=== PATIENT | female | born 1995 | race Caucasian/White ===

== ENCOUNTER 2017-08-09 08:37 | Emergency (ER) | payer OTHER ==
--- NOTE | 2017-08-09 08:41 | UC ---
Lower Extremity/Ankle HPI - HPI Summary HPI Summary: 22 year old male presents with complains of right ankle pain post fall. - History of Current Complaint Stated Complaint: RIGHT ANKLE INJURY Time Seen by Provider: 08/09/17 08:41 Hx Obtained From: Patient Hx Last Menstrual Period: 1 yr Onset/Duration: Sudden Onset Severity Initially: Moderate Severity Currently: Moderate Pain Scale Used: 0-10 Numeric - 8 Aggravating Factor(s): Standing Alleviating Factor(s): Rest - Allergies/Home Medications Allergies/Adverse Reactions: Allergies Allergy/AdvReac Type Severity Reaction Status Date / Time No Known Allergies Allergy Verified 08/09/17 08:43 PMH/Surg Hx/FS Hx/Imm Hx Previously Healthy: Yes - Surgical History Surgical History: None - Family History Known Family History: Positive: Unknown - Social History Alcohol Use: Weekly Alcohol Amount: 10 Substance Use Type: Marijuana Substance Use Comment - Amount & Last Used: 07/17/17 Smoking Status (MU): Never Smoked Tobacco Have You Smoked in the Last Year: Yes - marijuana - Immunization History Hx Tetanus, Diphtheria Vaccination: Yes Vaccination Up to Date: Yes Review of Systems Constitutional: Negative Skin: Negative Eyes: Negative ENT: Negative Respiratory: Negative Cardiovascular: Negative Gastrointestinal: Negative Genitourinary: Negative Motor: Negative Neurovascular: Negative Musculoskeletal: Other: - right ankle pain Neurological: Negative Psychological: Negative All Other Systems Reviewed And Are Negative: Yes Physical Exam Triage Information Reviewed: Yes Vital Signs Reviewed: Yes Eye Exam: Normal ENT Exam: Normal Dental Exam: Normal Neck exam: Normal Neck: Positive: 1 Respiratory Exam: Normal Cardiovascular Exam: Normal Abdominal Exam: Normal Musculoskeletal: Positive: Other: - right ankle pain/sprain Neurological Exam: Normal Psychological Exam: Normal Skin Exam: Normal Lower Extremity Course/Dx - Differential Dx/Diagnosis Provider Diagnoses: right ely sprain Discharge - Discharge Plan Condition: Stable Disposition: HOME Prescriptions: Ibuprofen TAB* [Motrin TAB* 800 MG] 800 mg PO Q6H #30 tab Patient Education Materials: Ankle Sprain (ED) Referrals: Ben Levin MD [Medical Doctor] - Non Staff,Doctor [Primary Care Provider] -
[2017-08-09 08:47] VITALS: BP 96/61
--- NOTE | 2017-08-09 09:14 | RAD ---
Indication: Right ankle injury. 3 views of the right ankle demonstrates ankle mortise to be intact. There is no fracture. No other bone or joint abnormality is identified. IMPRESSION: No fracture of the right ankle is noted.
== END 2017-08-09 09:56 | disposition home or self-care (01) ==
LOC: UCCORT 08:37
DX: S93.401A Sprain of unspecified ligament of right ankle, initial encounter (principal); W19.XXXA Unspecified fall, initial encounter; Y93.9 Activity, unspecified; Y92.9 Unspecified place or not applicable; Y99.9 Unspecified external cause status; F12.90 Cannabis use, unspecified, uncomplicated
CPT/HCPCS: 99213; G0463

== ENCOUNTER 2017-10-23 17:15 | Emergency (ER) | payer OTHER ==
[2017-10-23 19:07] VITALS: BP 119/79
--- NOTE | 2017-10-23 19:09 | UC ---
UC General HPI - HPI Summary HPI Summary: pt is c/o fever, sore throat from cough, congestion, chills and being achy. this began pm. no sob, cp, n/v/d or dysuria. throat sore only with the cough. friend has the flu. - History of Current Complaint Stated Complaint: COUGH SORE THROAT Time Seen by Provider: 10/23/17 18:58 Hx Obtained From: Patient Hx Last Menstrual Period: 1 yr Onset/Duration: Gradual Onset Timing: Constant Onset Severity: Moderate Associated Signs & Symptoms: Positive: Cough, Fever - Allergy/Home Medications Allergies/Adverse Reactions: Allergies Allergy/AdvReac Type Severity Reaction Status Date / Time No Known Allergies Allergy Verified 10/23/17 18:58 Home Medications: Home Medications guaiFENesin [Mucinex] 600 mg PO BID PRN 10/23/17 [History Confirmed 10/23/17] PMH/Surg Hx/FS Hx/Imm Hx Previously Healthy: Yes - Surgical History Surgical History: None - Family History Known Family History: Positive: Unknown - Social History Alcohol Use: Weekly Alcohol Amount: 10 Substance Use Type: Marijuana Substance Use Comment - Amount & Last Used: 07/17/17 Smoking Status (MU): Never Smoked Tobacco Have You Smoked in the Last Year: Yes - marijuana - Immunization History Hx Tetanus, Diphtheria Vaccination: Yes Vaccination Up to Date: Yes Review of Systems Constitutional: Fever, Chills Skin: Negative Eyes: Negative ENT: Sore Throat, Sinus Congestion Respiratory: Cough Cardiovascular: Negative Gastrointestinal: Negative Genitourinary: Negative Musculoskeletal: Myalgia Psychological: Negative Is Patient Immunocompromised?: No All Other Systems Reviewed And Are Negative: Yes Physical Exam Triage Information Reviewed: Yes Appearance: Ill-Appearing Vital Signs Reviewed: Yes Eye Exam: Normal ENT: Positive: Pharynx normal, TMs normal. Negative: Nasal drainage Neck: Positive: Supple, Nontender, No Lymphadenopathy Respiratory: Positive: Lungs clear, Normal breath sounds, No respiratory distress Cardiovascular: Positive: RRR, No Murmur Abdomen Description: Positive: Nontender, No Organomegaly, Soft Bowel Sounds: Positive: Present Neurological: Positive: Alert Psychological: Positive: Age Appropriate Behavior Skin Exam: Normal - assessment done in conjunction with pt triage. Diagnostics - Laboratory Diagnostic Studies Completed/Ordered: rapid flu=neg Course/Dx - Course Course Of Treatment: pt non toxic and not hypoxic, rapid flu neg. nothing on exam to suggest bacterial infection. tx supportive. close f/u advised. - Differential Dx - Multi-Symptom Provider Diagnoses: Influenza like illness Discharge - Discharge Plan Condition: Stable Disposition: HOME Patient Education Materials: Viral Syndrome (ED) Additional Instructions: FOLLOW UP [facility] IN 3 DAYS FOR A RECHECK OR SOONER FOR ANY CHANGES OR WORSENING.
== END 2017-10-23 19:45 | disposition home or self-care (01) ==
LOC: UCCORT 17:15
DX: J11.1 Influenza due to unidentified influenza virus with other respiratory manifestations (principal)
CPT/HCPCS: 87502; 99211; G0463

== ENCOUNTER 2017-10-28 15:16 | Emergency (ER) | payer OTHER ==
[2017-10-28 18:03] VITALS: BP 106/69
[2017-10-28] MEDS ORDERED: Albuterol 2.5 MG/3 ML NEB.SOL* (0.083%) INH ONE (18:22)
--- NOTE | 2017-10-28 18:27 | UC ---
General HPI - HPI Summary HPI Summary: pt states has been ill since last with fatigue, throat irritation, head and chest congestion with a cough. she admits to subjective f/c's, occasional wheezing. denies cp and sob. was seen here tuesday and was negative for flu. no hx asthma, no house mates with flu but one told "pre flu". - History of Current Complaint Chief Complaint: UCRespiratory Stated Complaint: COUGH, COLD SX'S Time Seen by Provider: 10/28/17 18:13 Hx Obtained From: Patient Hx Last Menstrual Period: 1 yr Onset/Duration: Gradual Onset Pain Intensity: 0 Associated Signs & Symptoms: Positive: Cough, Fever. Negative: Palpitations, SOB - Allergy/Home Medications Allergies/Adverse Reactions: Allergies Allergy/AdvReac Type Severity Reaction Status Date / Time No Known Allergies Allergy Verified 10/28/17 18:03 Home Medications: Home Medications Acetaminophen/Dextromethorphan [Daytime Cold & Cough Liquid] 237 ml PO DAILY [History Confirmed 10/28/17] PMH/Surg Hx/FS Hx/Imm Hx Previously Healthy: Yes - Surgical History Surgical History: None - Family History Known Family History: Positive: Unknown - Social History Occupation: Student Lives: Dormitory/Roommates Alcohol Use: Weekly Alcohol Amount: 10 Substance Use Type: Marijuana Substance Use Comment - Amount & Last Used: 07/17/17 Smoking Status (MU): Never Smoked Tobacco Have You Smoked in the Last Year: Yes - marijuana - Immunization History Hx Tetanus, Diphtheria Vaccination: Yes Vaccination Up to Date: Yes Review of Systems Constitutional: Fever, Chills, Fatigue Skin: Negative Eyes: Negative ENT: Nasal Discharge, Sinus Congestion Respiratory: Cough Cardiovascular: Negative Gastrointestinal: Negative Genitourinary: Negative Motor: Negative Neurovascular: Negative Musculoskeletal: Negative Neurological: Negative Is Patient Immunocompromised?: No All Other Systems Reviewed And Are Negative: Yes Physical Exam Triage Information Reviewed: Yes Appearance: Well-Appearing Vital Signs: Initial Vital Signs Temp 99.8 F 10/28/17 17:58 Pulse 93 10/28/17 17:58 Resp 16 10/28/17 17:58 BP 106/69 10/28/17 17:58 Pulse Ox 100 10/28/17 17:58 Vital Signs Reviewed: Yes Eye Exam: Normal ENT: Positive: Pharynx normal, Nasal congestion, Nasal drainage, TMs normal, Sinus tenderness Neck: Positive: Supple, Nontender, No Lymphadenopathy Respiratory: Positive: Lungs clear, No respiratory distress, Decreased breath sounds, Other: - cough is congested Cardiovascular: Positive: RRR, No Murmur Abdomen Description: Positive: Nontender, No Organomegaly, Soft Bowel Sounds: Positive: Present Musculoskeletal: Positive: No Edema Neurological: Positive: Alert Psychological: Positive: Age Appropriate Behavior Skin Exam: Normal Course/Dx - Course Course Of Treatment: less cough, improved aeration and pt notes easier to breathe post neb tx. since ill x several day and f/c's , will cover for presumptive bacterial infection and cough. - Differential Dx - Multi-Symptom Provider Diagnoses: URI, cough Discharge - Discharge Plan Condition: Improved Disposition: HOME Prescriptions: Albuterol HFA INHALER* [Ventolin HFA Inhaler*] 2 puff INH Q6H 7 Days #1 mdi Azithromycin TAB* [Zithromax TAB (Z-SAUD) 250 mg #6 tabs] 2 tab PO .TODAY, THEN 1 DAILY #1 saud Benzonatate CAP* [Tessalon 100 MG CAP*] 100 mg PO TID 4 Days #10 cap Referrals: No Primary Care Phys,NOPCP [Primary Care Provider] -
== END 2017-10-28 19:01 | disposition home or self-care (01) ==
LOC: UCCORT 15:16
DX: J06.9 Acute upper respiratory infection, unspecified (principal); R05 Cough
CPT/HCPCS: 99212; G0463

== ENCOUNTER 2018-01-15 18:56 | Emergency (ER) | payer OTHER ==
[2018-01-15 19:39] VITALS: BP 136/70
--- NOTE | 2018-01-15 20:00 | UC ---
Complaint Female HPI - HPI Summary HPI Summary: pt is c/o painful sores in her vaginal area for 4 days. she has the same partner x 6 months. she notes he had routine std testing recenlty and was neg. he denies hx herpes. denies urinay s/s's. - History Of Current Complaint Chief Complaint: UCGeneralIllness Stated Complaint: PERSONAL Time Seen by Provider: 01/15/18 19:38 Hx Obtained From: Patient Hx Last Menstrual Period: 1 yr Onset/Duration: Gradual Onset Timing: Constant Pain Intensity: 2 Alleviating Factor(s): Nothing Associated Signs And Symptoms: Negative: Fever, Back Pain, Vaginal Bleeding/ Discharge, Vaginal Discharge - Allergies/Home Medications Allergies/Adverse Reactions: Allergies Allergy/AdvReac Type Severity Reaction Status Date / Time No Known Allergies Allergy Verified 01/15/18 19:36 PMH/Surg Hx/FS Hx/Imm Hx Previously Healthy: Yes - Surgical History Surgical History: None - Family History Known Family History: Positive: Unknown - Social History Occupation: Student Lives: Dormitory/Roommates Alcohol Use: Weekly Alcohol Amount: 10 Substance Use Type: Marijuana Substance Use Comment - Amount & Last Used: 07/17/17 Smoking Status (MU): Never Smoked Tobacco Have You Smoked in the Last Year: Yes - marijuana - Immunization History Hx Tetanus, Diphtheria Vaccination: Yes Vaccination Up to Date: Yes Review of Systems Constitutional: Negative Skin: Negative Eyes: Negative ENT: Negative Respiratory: Negative Cardiovascular: Negative Gastrointestinal: Negative Genitourinary: Vaginal/Penile Burning, Ulceration/Lesion Motor: Negative Neurovascular: Negative Musculoskeletal: Negative Neurological: Negative Psychological: Negative Is Patient Immunocompromised?: No All Other Systems Reviewed And Are Negative: Yes Physical Exam Triage Information Reviewed: Yes Appearance: Well-Appearing Vital Signs: Initial Vital Signs Temp 99 F 01/15/18 19:33 Pulse 88 01/15/18 19:33 Resp 18 01/15/18 19:33 BP 136/70 01/15/18 19:33 Pulse Ox 100 01/15/18 19:33 Vital Signs Reviewed: Yes Eyes: Positive: Conjunctiva Clear ENT: Positive: Normal ENT inspection Neck: Positive: Supple, Nontender, No Lymphadenopathy Respiratory: Positive: Lungs clear, Normal breath sounds Cardiovascular: Positive: RRR, No Murmur Abdomen Description: Positive: Nontender, No Organomegaly, Soft. Negative: Distended, Guarding Bowel Sounds: Positive: Present Pelvic Exam: Positive: Other - ulcerations around the vaginal area that are very tender, viral culture done. vagina with thick white material and cervix closed, cultures done. no cmt, or masses on bimanual exam. Musculoskeletal: Positive: ROM Intact Neurological: Positive: Alert Psychological: Positive: Age Appropriate Behavior Skin Exam: Normal Diagnostics - Laboratory Diagnostic Studies Completed/Ordered: gc, chlamydia, affirm and viral cultures pending. HIV and syphilis testing declined by pt. Complaint Female Dx - Course Course Of Treatment: exam c/w genital herpes and probable yeat infection, pt being tx for both. - Differential Dx/Diagnosis Provider Diagnoses: Genital herpes. Vaginitis. Discharge - Sign-Out/Discharge Documenting (check all that apply): Discharge/Admit/Transfer - Discharge Plan Condition: Stable Disposition: HOME Prescriptions: ValACYclovir (*) [Valtrex 1 GM(*)] 1 gm PO BID #14 tab Patient Education Materials: Genital Herpes Simplex (ED), Yeast Infection (ED) - Billing Disposition and Condition Condition: STABLE Disposition: HOME
[2018-01-15] MEDS ORDERED: Ibuprofen ADULT LIQ* 600 MG/30 ML UDC PO ONE (20:20)
[2018-01-15] MEDS ORDERED: Fluconazole 150 MG (NF) 150 MG TAB PO ONE (20:21)
[2018-01-15] MEDS ORDERED: Acyclovir* 200 MG CAP PO ONE (20:21)
[2018-01-15] MEDS ORDERED: Fluconazole 100 MG TAB* TAB PO ONE (20:29)
--- NOTE | 2018-01-17 07:17 | UC ---
- Progress Note Progress Note: + BV will ERx Flagyl 500 mg bid x 7 days Discharge - Sign-Out/Discharge Documenting (check all that apply): Discharge/Admit/Transfer - Discharge Plan Condition: Stable Disposition: HOME Prescriptions: metroNIDAZOLE [Flagyl] 500 mg PO BID #14 tablet ValACYclovir (*) [Valtrex 1 GM(*)] 1 gm PO BID #14 tab Patient Education Materials: Genital Herpes Simplex (ED), Yeast Infection (ED) Forms: *School Release Referrals: No Primary Care Phys,NOPCP [Primary Care Provider] - Additional Instructions: FOLLOW UP WITH DR TINEO YOU RN SURG[facility] AT HOME IN 1 WEEK. - Billing Disposition and Condition Condition: STABLE Disposition: HOME
== END 2018-01-15 20:46 | disposition home or self-care (01) ==
LOC: UCCORT 18:56
DX: A60.04 Herpesviral vulvovaginitis (principal)
CPT/HCPCS: 87480; 87491; 87510; 87529; 87591; 87661; 99212; A9270-GY; G0463